=== PATIENT | male | born 1965 | race African-American/Black ===

== ENCOUNTER 2020-09-24 12:13 | Emergency (ER) | payer SELFPAY ==
[2020-09-24] MEDS ORDERED: Lidocaine 1% w/Epinephrine 1:100K 20 ML VIAL ONE (13:34)
[2020-09-24] MEDS ORDERED: Acetaminophen 500 MG TAB ONE (13:57)
== END 2020-09-24 13:58 | disposition home or self-care (01) ==
LOC: CSHERS 12:13
DX: S01.81XA Laceration without foreign body of other part of head, initial encounter (principal); Z79.82 Long term (current) use of aspirin; Y09 Assault by unspecified means
CPT/HCPCS: 12011; 70450; 70486